=== PATIENT | female | born 2000 | race Caucasian/White ===

== ENCOUNTER → 2020-03-09 | Emergency (ER) | payer OTHER ==
[~2020-03-09] VITALS: Ht 167.6 cm; Wt 72.6 kg
[2020-03-09 19:35] VITALS: BP 145/96
== END | disposition left against medical advice (07) ==
LOC: ER 19:22
DX: R20.0 Anesthesia of skin (principal); Z53.21 Procedure and treatment not carried out due to patient leaving prior to being seen by health care provider